=== PATIENT | male | born 1950 | race Caucasian/White ===

== ENCOUNTER → 2018-05-18 | Outpatient (CLI) | payer MEDICARE, OTHER, BC ==
[~2018-05-18] MED LIST: DARBEPOETIN ESRD 25 MCG/ML IVP ONE; DEXTROSE 50% 50 ML SYR IVP PRN; DIALYSIS ACETAMINOPHEN 325 MG PO PRN; HEPARIN (PORCINE) 1000 UNIT/ML (DIALYSIS) IVP PRN; HEPARIN SOD (PORCINE) LOAD IVP PRN; HEPARIN SOD (PORCINE) UNIT/HR IVP PRN; LIDOCAINE/SOD BICARB 8.4% SYR ID PRN; LIDOCAINE/SOD BICARB 8.4% SYR SC PRN; LOPERAMIDE HCL 2 MG CAP PO PRN; MIDODRINE HCL 10 MG TABLET PO PRN; PARICALCITOL 2 MCG/ML VIAL IVP PRN; PROMETHAZINE HCL 25 MG TAB PO PRN; diphenhydr DIALYSIS 50 MG/ML IVP PRN
== END ==
LOC: DIAL 07:30
PROVIDERS: ATTEND Internal Medicine Nephrology
DX: N18.6 End stage renal disease (principal); D63.1 Anemia in chronic kidney disease; K74.60 Unspecified cirrhosis of liver; N25.81 Secondary hyperparathyroidism of renal origin; N28.1 Cyst of kidney, acquired; L29.9 Pruritus, unspecified; R22.32 Localized swelling, mass and lump, left upper limb; E87.70 Fluid overload, unspecified; Z99.2 Dependence on renal dialysis; Z86.79 Personal history of other diseases of the circulatory system; Z95.810 Presence of automatic (implantable) cardiac defibrillator
CPT/HCPCS: 90999; A4657; J2501